=== PATIENT | female | born 1955 | race Caucasian/White ===

== ENCOUNTER 2016-08-13 15:32 | Emergency (ER) | payer MEDICARE ==
[~2016-08-13] VITALS: Ht 160 cm; Wt 37.2 kg
[~2016-08-13 15:32] MED LIST: AUGMENTIN 875-1 EACH PO; DICLOFENAC 50MG50 MG PO; FLEXERIL10 MG PO; MEDROL DOSEPAK4 MG PO; NOMEDS XX
--- NOTE | 2016-08-13 15:52 | Urgent Treatment Center Report ---
History of Present Issue Date/Time Seen by Provider 08/13/16 0280 Visit Reason Pt arrived:Wheelchair Presenting Problem:PT C/O LEFT FOOT AND ANKLE PAIN AFTER DANCING OVER THE WEEKEND IN HEELS Location if Accident: Onset of symptoms date/time:/ or onset unknown for:MEDICAL HX UNKNOWN Have you (or family members/close friends) recently traveled outside the [place]? N If Yes, where/when: Have you had exposure to infectious disease within the past month? TB? Other? Specify: Patient states that she was dancing over the weekend in high heeled boots when she went to stomp her foot to a song and felt a sharp pain in the bottom of her foot that radiates up the back of her ankle around the archilles tendon area now it hurts to bear weight on it ALLERGIES Coded Allergies: clopidogrel (From PLAVIX) (S-SKIN ERUPTIONS 10/28/15) Home Medications Active Scripts Amoxicillin/Potassium Clav (Augmentin 875-125 Tablet) 1 EACH PO BID 10 Days Prov: 02/13/16 Methylprednisolone (Medrol) 4 MG PO DAILY #1 Packet Prov: 02/13/16 DICLOFENAC SODIUM (Diclofenac 50MG) 50 MG PO BID #60 TAB Prov: 10/28/15 Cyclobenzaprine Hcl (Flexeril) 5 MG PO BID #30 TAB Prov: 10/28/15 Reported Medications No Home Medications (NO HOME MEDICATIONS) 1 EACH XX ONCE History Medical History General CAD? Yes Angina: Yes PR: Yes Hypertension? No Hyperlipidemia? No CHF? Yes DVT? No PE? No COPD? Yes Asthma? Yes Anemia? Yes GERD? No Gastric ulcers? No GI Bleed? No Hernia? No Thyroid Problems? No Hypothyroidism? No CVA? No Seizures? No Diabetes? No Renal Insuffiency? No UTI? No Stones? No GB Disease: No Nephritic Syndrome? No Asplenia? No Hepatitis? No Sickle Cell Disease? No Arthritis? No Migraines? Yes Cataracts? No Glaucoma? No MRSA? No HIV? No TB? No Anxiety? Yes Depression? Yes Cancer? Yes Site: BREAST More? No Immunization HX DT/Tetanus Unknown Surgical Hx Previous Surgery?Y AGUEDA RIGHT LUMPECTOMY SHEILA BUNIONECTOMY Hemorrhoidectomy Social History Smoking Hx Smoker: Current Every Day Smoker Tobacco: Yes Type Cigarettes Packs/day 1 1/2 - 2 Packs Alcohol Alcohol: Yes Review of Systems All Other Systems Reviewed and Negative Physical Exam Vital Signs Vital Signs Date Time Temp Pulse Resp B/P Pulse O2 O2 Flow FiO2 Ox Delivery Rate 08/13 1541 98.6 114 18 138/84 94 General Appearance normal appearance Respiratory Status Yes: trachea midline, chest symmetrical, non tender chest. No: respiratory distress. Cardiovascular normal exam, no peripheral edema, no gallop Extremities pain in left foot and ankle, small contusion noted on bottom of left foot Neurologic alert, normal exam, no motor/sensory deficits Medical Decision Making LABS/Meds/Orders Pt receiving controlled substance in ED? No Results/Orders Orders Procedure Date/time Status FOOT-LT-3 VIEWS 08/13 154 Active ANKLE-LT-3 VIEWS 08/13 1546 Active XRAY/CT/US XRAY/CT/US XR interpretation by reviewed by me Xray Results no fracture seen Progress [facility] Progress Notes Date 08/13/16 Time 1609 Comment Patient placed in boot splint and given crutches Departure Departure Time of Disposition 1608 Disposition DC Home or Self Care(routine) Clinical Impression Primary Impression: Sprain of foot, left Qualifiers: Encounter type: initial encounter Qualified Code: S93.602A - Unspecified sprain of left foot, initial encounter Condition STABLE Patient Instructions DI for Foot Sprain, How To Perform RICE (Rest, Ice, Compress, Elevate), How to Use a Walking Boot, How to Use Crutches Additional Instructions Follow up with family doctor for referal to Orthopedics for further evaluation Over the counter Motrin as neeeded for pain RICE Return if needed Use boot splint and crutches until cleared by family doctor or ORTHO Discharge Counseling Counseled pt/family regarding diagnosis, test results, medications/RX, home care at 1615
[2016-08-13 16:22] VITALS: BP 138/84
--- NOTE | 2016-08-13 17:58 | RADIOLOGY REPORT PS360 ---
ANKLE-LT-3 VIEWS ORDERING PHYSICIAN : GLENN SHEFFIELD APRN PATIENT AGE: 60 years GENDER: Female INDICATION: INJURED WHILE DANCING THIS WEEKENED TECHNIQUE: 3 views left ankle. Injured while dancing akira. COMPARISON: No previous FINDINGS Left ankle is intact with no fracture evident Normal relationships at the ankle joint. Dome of talus intact. The lateral malleolus medial malleolus posterior malleolus appear intact. No significant soft tissue swelling. IMPRESSION: Negative left ankle. No fracture.
--- NOTE | 2016-08-13 17:58 | RADIOLOGY REPORT PS360 ---
FOOT-LT-3 VIEWS ORDERING PHYSICIAN : GLENN SHEFFIELD APRN PATIENT AGE: 60 years GENDER: Female INDICATION: INJURED WHILE DANCING THIS WEEKENED Left foot and ankle pain from, from foot/ankle injury TECHNIQUE: 3 view left foot COMPARISON: None FINDINGS The left foot is intact with no fracture evident. There is been a previous osteotomy bunionectomy at the distal first metatarsal. 2 screws enter posteriorly reflecting the previous bunionectomy procedure. . 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 The remainder the foot appears intact and unremarkable. The metatarsals intact. Calcaneus unremarkable. IMPRESSION: No acute findings at the foot. No fracture. Postsurgical changes first metatarsal.
[2016-08-17] MEDS ORDERED: IPRATROPIUM BROM3 M1 IH (11:20)
[2016-08-17] MEDS ORDERED: VENTOLIN H0.09 MG/Ac IH (11:20)
[2016-08-17] MEDS ORDERED: ZOFRAN ODT4 MG PO (13:23)
[2016-08-27] MEDS ORDERED: PROVENTIL0.09 MG/A1 IH (16:01)
[2016-08-27] MEDS ORDERED: ZITHROMAX Z PA250 MG PO (16:01)
[2016-08-27] MEDS ORDERED: MEDROL 4MG. DOSE4 MG PO (16:01)
[2016-08-27] MEDS ORDERED: MUCINEX1200 MG PO (16:01)
== END 2016-08-13 16:22 | disposition home or self-care (01) ==
LOC: UTC 15:32
PROC: 2W3TX1Z Immobilization of Left Foot using Splint (ICD-10-PCS; principal; 2016-08-13)
DX: S93.602A Unspecified sprain of left foot, initial encounter (principal); X50.3XXA Overexertion from repetitive movements, initial encounter; Y93.41 Activity, dancing; Y92.89 Other specified places as the place of occurrence of the external cause

== ENCOUNTER 2016-10-10 07:21 | Day surgery (SDC) | payer MEDICARE ==
[~2016-10-10 07:21] MED LIST changes: +IPRATROPIUM BROM3 M1 IH; +MEDROL 4MG. DOSE4 MG PO; +MUCINEX1200 MG PO; +PROVENTIL0.09 MG/A1 IH; +VENTOLIN H0.09 MG/Ac IH; +ZITHROMAX Z PA250 MG PO; +ZOFRAN ODT4 MG PO
[2016-10-10 14:17] VITALS: BP 167/96
--- NOTE | 2016-10-11 13:20 | RADIOLOGY REPORT PS360 ---
CARDIAC CATHETERIZATION DATE OF CATHETERIZATION:10/11/2016 1:05 PM PROCEDURES: 1. Right heart catheterization 2. Left ventriculogram 3. Selective coronary angiogram 4. Left heart catheterization 5. Catheter placement in the abdominal aorta 6. Abdominal aortography 7. Repositioning of the catheter in the abdominal aorta 8. Bilateral iliofemoral runoff INDICATION FOR TEST: 1. Angina pectoris class III and IV 2. Severe COPD 3. Pulmonary hypertension 4. High pretest likelihood for coronary artery disease 5. Known peripheral artery disease 6. Right common iliac artery bruit 7. History of peripheral stents Informed consent was obtained prior to the procedure. COMPLICATIONS: None ESTIMATED BLOOD LOSS: Less than 10 ml. TECHNIQUE: One percent lidocaine was used to anesthetize the right groin. The right femoral artery was accessed via the Seldinger technique. A 4-Faroese sheath and 7 Faroese sheath were placed in the artery vein respectively. A Lawton-Ernie catheter was floated into the pulmonary arteries via the right femoral vein and hemodynamic study was performed. The apparatus was removed and left heart catheterization was then performed. Over a 3J wire a JL 4 JR4 catheter were used to perform left heart catheterization left ventriculogram and selective coronary angiography. At the end of the diagnostic angiogram the pigtail catheter was placed in the abdominal aorta and abdominal aortography was performed. The catheter was then repositioned distally just proximal to the common iliac artery bifurcation and bilateral iliofemoral runoff was performed.. ANGIOGRAPHIC RESULTS: 1. The left main artery normal 2. The left anterior descending artery normal 3. The circumflex artery dominant and normal 4. The right coronary artery nondominant and has mid vessel 20-30% eccentric stenoses and distal 30-40% nonflow limiting stenoses 5. The LINDO ventriculogram reveals normal 65% 6. The left ventricular end-diastolic pressure 10 mmHg 7. The suprarenal abdominal aorta is normal 8. The right renal artery is singular and has a proximal 40% stenosis while the left renal artery singular and normal. 9. The mesenteric arteries are normal 10. The right common iliac artery has proximal 10-20% stenosis with a stent in its distal segment that extends into the external iliac artery. This stent has 30% in-stent restenosis while the internal iliac arteries occluded. The right external iliac artery is patent as it extends into the right common femoral artery which has mild atheromatous plaque. The right profunda femoris artery is normal. The right superficial femoral artery has mild atheromatous plaque with 30-40% stenosis at Laureano's canal. The right popliteal artery is normal with three-vessel runoff below the knee to the ankle 11. The left common iliac artery has a long tubular 40% narrowing as it extends into the external iliac artery. The left internal iliac artery appears to be occluded ostially. The left common femoral artery is normal as is the left profunda femoris artery and the left superficial femoral artery. The left popliteal artery is normal with three-vessel runoff below the knee in the left side Right atrial saturation 78% Pulmonary artery saturation 79% Right atrial pressure is 3 mmHg Pulmonary artery pressure is 30/15 mmHg IMPRESSION: 1. Mild nonflow limiting coronary artery disease involving a nondominant mid and distal right coronary artery 2. Normal ejection fraction 3. Normal left ventricular end-diastolic pressure 4. Peripheral artery disease as described above 5. Mild pulmonary hypertension with normal left-sided filling pressures PLAN: 1. Medical management for both peripherally coronary artery disease 2. Tobacco cessation 3. High intensity statin therapy
== END 2016-10-10 14:24 | disposition home or self-care (01) ==
LOC: CATHLAB 07:21
PROVIDERS: Internal Medicine
PROC: B2111ZZ Fluoroscopy of Multiple Coronary Arteries using Low Osmolar Contrast (ICD-10-PCS; 2016-10-10)
PROC: B2151ZZ Fluoroscopy of Left Heart using Low Osmolar Contrast (ICD-10-PCS; 2016-10-10)
PROC: B41D1ZZ Fluoroscopy of Aorta and Bilateral Lower Extremity Arteries using Low Osmolar Contrast (ICD-10-PCS; 2016-10-10)
PROC: 4A023N8 Measurement of Cardiac Sampling and Pressure, Bilateral, Percutaneous Approach (ICD-10-PCS; principal; 2016-10-10 09:45)
DX: I25.119 Atherosclerotic heart disease of native coronary artery with unspecified angina pectoris (principal); Z72.0 Tobacco use; I70.1 Atherosclerosis of renal artery; I70.209 Unspecified atherosclerosis of native arteries of extremities, unspecified extremity; I27.2 Other secondary pulmonary hypertension; J44.9 Chronic obstructive pulmonary disease, unspecified; I50.9 Heart failure, unspecified
CPT/HCPCS: C1725; C1769; C1894; J1644; Q9966

== ENCOUNTER 2017-03-02 20:22 | Inpatient (IN) | payer MEDICARE ==
[~2017-03-02] VITALS: Ht 160 cm; Wt 43.7 kg
[2017-03-02 20:23] VITALS: BP 153/89
--- NOTE | 2017-03-02 20:46 | Emergency Room Report ---
History of Present Illness Time Seen by 2021 Presenting Problem in Triage Pt arrived:Wheelchair Presenting Problem:SHORTNESS OF BREATH, CHEST PAIN, MORE IN LEFT LUNG AREA. STARTED A FEW MINUTES AGO. Onset of symptoms date/time:03/02/1703/10/2000 or onset unknown for: Treatment Prior to Arrival: TERMINOLOGIST Provided by: Sepsis Risk Assessment: Temp: 99.1 B/P: 153/89 MAP: 110 Pulse: 111 Resp: 28 Recent fever? Y Clinical Suspician of Infection? Y Mental Status: 1 - Regular (Normal Baseline) Sepsis Risk:Severe Sepsis Risk Have you (or family members/close friends) recently traveled outside the [place]? N If Yes, where/when: Have you had exposure to infectious disease within the past month? N TB? Other? Specify: Source patient, RN notes reviewed, old records Exam Limitations no limitations Comment pt with known o2 dep copd who over the last few days has fever with medical claims assistant cough but no hemoptysis and has lt sided chest pain Cardiac Chest Pain Chest pain indicative of cardiac No Timing/Duration this evening Severity moderate ALLERGIES Coded Allergies: clopidogrel (From PLAVIX) (S-SKIN ERUPTIONS 08/17/16) Home Medications Reported Medications No Home Medications (NO HOME MEDICATIONS) 1 EACH XX ONCE History Medical History General CAD? Yes Angina: Yes SD: Yes Hypertension? Yes Hyperlipidemia? No CHF? Yes DVT? No PE? No COPD? Yes Asthma? Yes Anemia? Yes GERD? No Gastric ulcers? No GI Bleed? No Hernia? No Thyroid Problems? No Hypothyroidism? No CVA? No Seizures? No Diabetes? No Renal Insuffiency? No End Stage Renal Disease? No UTI? No Stones? No GB Disease: No Nephritic Syndrome? No Asplenia? No Hepatitis? No Sickle Cell Disease? No Arthritis? No Migraines? Yes Cataracts? No Glaucoma? No MRSA? No HIV? No TB? No Anxiety? Yes Depression? Yes Cancer? Yes Site: BREAST More? No Immunization Hx DT/Tetanus Unknown Flu 2015-FSN Pneumonia Received In Past Surgical Hx Previous Surgery?Y AGUEDA RIGHT LUMPECTOMY SHEILA BUNIONECTOMY Hemorrhoidectomy Family History Family Hx Diabetes Yes CAD Yes Hypertension Yes Hyperlipidemia Yes Cancer Yes TB No Social History Smoking Hx Smoker: Current Every Day Smoker Tobacco: Yes Type Cigarettes Packs/day 1 1/2 - 2 Packs Alcohol Alcohol: No Drugs none Review of Systems All Other Systems Reviewed and Negative Constitutional see HPI, fever Eyes denies drainage ENT denies: ear discharge, epistaxis, throat pain. Respiratory see HPI, cough, shortness of breath, wheezing Cardiovascular denies chest pain, denies palpitations, denies syncope Gastrointestinal denies abdominal pain, denies diarrhea, denies vomiting Genitourinary denies: dysuria, frequency, hesitancy, hematuria. Musculoskeletal denies back pain, denies joint pain, denies joint swelling, denies neck pain Skin denies rash Psychiatric/Neurological denies headache, denies seizure Physical Exam Vital Signs Vital Signs Date Time Temp Pulse Resp B/P Pulse O2 O2 Flow FiO2 Ox Delivery Rate 03/02 2123 102 20 135/71 100 03/02 2023 99.1 111 28 153/89 88 - WBC >12,000 or <4,000 or 10% bands? 2 or more SIRS Criteria Met? B/P:135/71 MAP:110 Creatinine >2.0? UA output<0.5ml/kg/hr for 2 hrs? Platelet count >100,000? Lactate >2.0mmol/1? INR >1.2 or PTT > than 60 sec? Evidence of Organ Dysfunction? Provider documented clinical suspician of infection? Y Sepsis Criteria Count: 2 Sepsis Risk: Severe Sepsis Risk General Appearance no apparent distress Eye Exam - bilateral eye PERRL, bilateral eye EOMI Ear, Nose, Throat normal ENT inspection Neck supple Respiratory Status No: respiratory distress. Lung Sounds bilateral: decreased breath sounds, rhonchi. Cardiovascular regular rate/rhythm, no JVD, no rub, systolic murmur, gallop/S4 Peripheral Pulses Pulses normal Yes Gastrointestinal soft Extremities normal inspection, no calf tenderness Strength 4 Upper Ext (L), 4 Upper Ext (R), 4 Lower Ext (L), 4 Lower Ext (R) Neurologic alert, impregnator helper II-XII nml as tested, no motor/sensory deficits Reflexes Reflexes normal No Mental status normal mood/affect Skin intact Medical Decision Making LABS/Meds/Orders Pt receiving controlled substance in ED? No Results/Orders Laboratory Tests 03/02/172120: ABG pH 7.43, ABG pCO2 (Temp Corrct 38.2, ABG pO2 (Temp Correct 67.3 L, ABG HCO3 24.6, ABG Total CO2 25.8, ABG O2 Sat (Calculated) 94.5, ABG Base Excess 0.3, Raman Test Y, Blood Gas Comments R/R 03/02/172034: Lactic Acid 2.3 H 03/02/172034: Sodium 134 L, Potassium 4.5, Chloride 96 L, Carbon Dioxide 32, BUN 11, Creatinine 0.7, Estimated Creat Clear 48 L, Estimated GFR (MDRD) 85, Glucose 83 , Calcium 9.4, Total Bilirubin 0.4, AST 25, ALT 25, Alkaline Phosphatase 114, Creatine Kinase 52, CK-MB (CK-2) Rel Index 1.0, CK and CKMB Interp < 0.5, Troponin I < 0.02, Total Protein 8.6 H, Albumin 3.4, Globulin 5.2 H, Albumin/ Globulin Ratio 0.7 L, WBC 11.5 H, RBC 4.89, Hgb 15.6, Hct 48.1 H, MCV 98.4 H , RDW 12.7, Plt Count 273, MPV 8.9, Gran % 78.7, Gran # 9.0 H, Lymphocytes % 16.6, Monocytes % 2.7, Eosinophils % 1.7, Basophils % 0.4, Lymphocytes # 1.9, Monocytes # 0.3, Eosinophils # 0.2, Basophils # 0.0, PUBS MCHC 32.5, MCH 32.0 H Current Medication Orders Sig/Hussain Start time Last Medication Dose Route Stop Time Status Admin Azithromycin 500 MG ONCE ONE 03/02 2215 AC Sodium Chloride 250 ML IV 03/02 231 Ceftriaxone Sodium 1 GM ONCE ONE 03/02 2215 AC Sodium Chloride 50 ML IV 03/02 2244 Methylprednisolone 125 MG ONCE ONE 03/02 2200 DC Sodium Succinate IV 03/02 2201 Albuterol/Ipratropium 3 ML ONCE ONE 03/02 2115 DC INH 03/02 2116 Albuterol/Ipratropium 0 .STK-MED ONE 03/02 2107 DC INH Sodium Chloride 10 ML PRN PRN 03/02 2030 AC IV 03/03 2028 Orders Procedure Date/time Status Decision to admit 03/02 2205 Active CULTURE, BLOOD 03/02 2112 Active LACTIC ACID 03/02 2112 Complete RT REQUEST DUONEB 03/02 2101 Active ARTERIAL BLOOD GAS REQUEST 03/02 2057 Active ELECTROCARDIOGRAM REQUEST 03/02 2028 Active CHEST-PORTABLE 03/02 2028 Active IV SALINE LOCK 03/02 2028 Active COMPLETE METABOLIC PANEL 03/02 2028 Complete CBC WITH AUTO DIFF 03/02 2028 Complete CARDIAC ENZYMES 03/02 2028 Complete 12 LEAD EKG-JG (INITIAL) 03/02 UNK Active CM/EKG 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 ST/Twave chgs XRAY/CT/US XRAY/CT/US XRAY chest XR interpretation by reviewed by me Xray Results abnormal (copd/chronic changes ) Departure Departure Time of Disposition 2200 Disposition Still a Patient Clinical Impression Primary Impression: COPD (chronic obstructive pulmonary disease) with acute bronchitis Condition STABLE Referrals FREYA MODI (Family) discussed with dr baker ED Critical Care Critical Care No at 2210
[2017-03-02 20:53] LABS: HEMOGLOBIN 15.6 g/dL (12.2-16.2); LYMPH # 1.9 K/mm3 (0.7-4.5); LYMPH % 16.6 % (10-50.0)
[2017-03-02 21:19] LABS: BUN 11 mg/dL (7-18); GFR (ESTIMATED) 85 ML/MIN (59-)
[2017-03-02 21:22] LABS: ALLEN'S TEST Y; ARTERIAL ABE 0.3 MMOL/L (-2.4-+2.3); ARTERIAL PO2 67.3 MMHG (80-100); ARTERIAL TCO2 25.8 MMOL/L (23-27); OXYGEN 2
[2017-03-02 23:40] VITALS: BP 110/72
[2017-03-03] VITALS (7 sets, daily range): BP systolic 105–110; BP diastolic 59–72
[2017-03-03] MEDS ORDERED: ALBUTEROL-200 PUFFS/ IH (03:36)
[2017-03-03] MEDS ORDERED: VENTOLIN H0.09 MG/AC IH (03:45)
[2017-03-03 04:24] LABS: HEMOGLOBIN 14.2 g/dL (12.2-16.2); LYMPH # 0.5 K/mm3 (0.7-4.5); LYMPH % 3.7 % (10-50.0)
[2017-03-03 04:51] LABS: BUN 11 mg/dL (7-18)
[2017-03-03 04:58] LABS: GFR (ESTIMATED) 73 ML/MIN (59-)
[2017-03-03 06:19] LABS: NEUTROPHILS 84 % (42-76)
--- NOTE | 2017-03-03 08:09 | RADIOLOGY REPORT PS360 ---
CHEST-PORTABLE HISTORY: Shortness of breath sob ORDERING PHYSICIAN: Alen Reveles MD PATIENT AGE: 61 years COMPARISON: 08/27/2016 FINDINGS: Multiple small opacities are present over the lower chest consistent with artifact from the patient's garment. Normal heart size. COPD with chronic changes. Postsurgical changes right upper lobe. There is vague opacity in the left apex which may be due to chronic pleural parenchymal changes. Chest CT may confirm. Infiltrate or developing mass also a consideration. There are chronic changes in the lung bases. There is patchy density in the left lower lobe consistent with atelectasis or infiltrate. Nodular opacity right lung base nonspecific and may be due to artifact. IMPRESSION: 1. COPD with chronic changes. 2. Left lower lobe infiltrate. 3. Vague opacity left upper lobe which may be due to fibrotic change, pneumonia, or even developing mass. 4. Nodular opacity right lung base which may be due to developing nodule or artifact. Consider chest CT for further evaluation.
--- NOTE | 2017-03-03 09:13 | PHARMACY CLINIC NOTE ---
Patient Demographics Patient Demographics Admission date: 03/02/17 Date: 03/03/17 Time: 09 Allergies Coded Allergies: clopidogrel (From PLAVIX) (S-SKIN ERUPTIONS 08/17/16) HEIGHT- FT: 5 IN: 3.00 K.556 VTE General Information Labs: Laboratory Tests 03/03 03/02 0410 2035 Hematology Hgb (12.2 - 16.2 g/dL) 14.2 15.6 Hct (37.0 - 47.0 %) 43.3 48.1 H Plt Count (142 - 424 K/mm3) 253 273 Disclaimer The following section includes nursing documentation that has been pulled in for pharmacy review. Patient's VTE score: 3 Patient's VTE Risk: LOW RISK Clinical trial participant? No VTE prophylaxis NQF [id number] VTE prophylaxis ordered? Yes Type of prophylaxis/treatment: ANGELA at 0913
--- NOTE | 2017-03-03 09:50 | HISTORY AND PHYSICAL REPORT ---
History and Physical (FCA) Date of admission: 03/02/17 Chief complaint: Shortness of breath History: History of Present Illness: This 61-year-old white female has chronic obstructive lung disease and emphysema. She has smoked since the age of 11. She presented in the emergency room at [facility] with complaints of increased shortness of breath and pain in the LEFT chest. She is a patient of Dr. Yvette Law in [facility]. She last saw Dr. Law in the spring. She's also been a patient of Dr. Agustin Shane, hotel or motel room service supervisor. Significant in her pulmonary history is a pneumothorax of the RIGHT side in 1989 with recurrence [address] Ojeda in [facility] for surgery on her lung to remove damaged tissue and to adhese the lung to the pleura. She states that she has used home oxygen for the past 4 years. She uses inhalers and nebulizers. She uses DuoNeb and uses a Ventolin metered dose inhaler she occasionally takes some Benadryl and states that she was taking Coricidin for recent cold symptoms that led to her presentation in the emergency room. Past Medical History: Medical History: CAD? Yes Angina: Yes CO: Yes (2009? Cath by [facility]) Hypertension? Yes Hyperlipidemia? No CHF? No DVT? No PE? No COPD? Yes Asthma? Yes Anemia? Yes GERD? No Gastric ulcers? No GI Bleed? No Hernia? No Thyroid Problems? No Hypothyroidism? No CVA? No Seizures? No Diabetes? No Renal Insuffiency? No UTI? No Stones? No GB Disease: No Nephritic Syndrome? No Asplenia? No Hepatitis? No Sickle Cell Disease? No Arthritis? No Migraines? Yes Cataracts? No Glaucoma? No MRSA? No HIV? No TB? No Anxiety? No Depression? No Cancer? Yes Site: BREAST More? Yes Additional hx: She has had cat scratch fever in the past. After her heart attack in catheterization in 2009 she underwent placement of stents in the RIGHT leg. She also mentions 2012 as possible time for this. She has been scheduled to see Dr. Worley but has not seen him at this point. Additional medical history: The patient also had a cardiac catheterization October 10, 2016 to check on the status of peripheral stents. Her ejection fraction was estimated at 65 percent on that procedure and on an echo for 2116 it was 55 percent. She underwent mammography on 2116 are October 17, 2016 primary function tests showed severe chronic obstructive pulmonary disease/emphysema. Surgical history: Previous Surgery?Y 1. Treatment of the cervix with subsequent AGUEDA 2. RIGHT LUMPECTOMY 3. Right and left BUNIONECTOMY 4. Hemorrhoidectomy 5. Carpal tunnel Medications: Reported Medications ALBUTEROL (Ventolin Hfa) 1 PUFF IH Q6H6 No Home Medications (NO HOME MEDICATIONS) 1 EACH XX ONCE Allergies: Coded Allergies: clopidogrel (From PLAVIX) (S-SKIN ERUPTIONS 08/17/16) Family History: Family history: Postive for: CAD, HTN, cancer. Additional family history: Her mother and father both of lung cancer. Her 4 years ago of lung cancer. A sister and 2 brothers have had lung cancer. Another sister had bone cancer. HER-2 brothers have both had heart disease. All of her children smoke. Social History: Smoking Hx Tobacco: Yes Smoker: Current Every Day Smoker Type: Cigarettes Packs/day: < 1 Pack Are you exposed to second hand Yes Alcohol: Alcohol: Yes How much do you drink 3 TO 13 BEERS PER DAY For how long Longer Than 5 Years When was your last drink 48-72 Hours Ago Hx of Drug Use: Drug Use? No Patien't marital status is: spouse Patient's support system is: good Review of Systems: Patient unresponsive? No Constitutional No: chills, fatigue. ENT No: ear ache, nose bleed, ear drainage, hearing loss, mouth pain, nasal congestion, ear ringing, sinus problems, sore throat, throat swelling, tongue pain, tongue swelling, toothache, voice change. Cardiovascular Positive for: PALACIOS, chest pain. No: edema, palpitations. Respiratory Positive for: dyspnea on exertion, shortness of air, wheezing. No: productive cough (sputum). GI No: GERD, abdominal pain, anorexia, constipation, diarrhea, dysphagia, hematemeis, hematochezia, hernia, melena, nausea, rectal pain, vomitting. Skin No: bruising, rash, swelling. Neurological No: change in LOC, bladder dysfunction, bowel dysfunction, dizziness, light headed, syncope. Immune/allergy Positive for: allergy (clopidogrel). Eyes No: vision loss, eye pain, redness. Musculoskeletal No: extremity pain, extremity swelling. Heme No: bleeding. Endocrine No: polydipsia. Psychiatric No: agitation, anxious, auditory hallucinations, confused, delusional, depression, homicidal ideation, hostile, insomnia, change in mental status, stress, suicidal ideation, visual hallucination. Physical Exam: Vital signs: 1ST Vital Signs Result Date Time Pulse Ox 88 03/02 2023 B/P 153/89 03/02 2023 Temp 99.1 03/02 2023 Pulse 111 03/02 2023 Resp 28 03/02 2023 O2 Delivery OXYGEN 03/02 2340 O2 Flow Rate 2 03/03 0009 Exam: General appearance: alert, no acute distress (somewhat tachypneic) Eyes: conjunctiva clear, PERRLA ENT: mucous membranes moist, teeth/gums abnormal (missing teeth.upper plate) Neck: no carotid bruit Cardiovascular: regular rate & rhythm (S4) Respiratory: diminished breath sounds, wheezing (LEFT more than RIGHT) ABD: soft, no tenderness, no guarding (scaphoid) Genitourinary: normal voiding & quantity Extremities: no peripheral edema (very thin) Skin: normal exam, intact, normal color Neuro: alert, no deficit, oriented, speech clear Lab data: Labs: Laboratory Tests 03/03/17 0410: Sodium 134 L, Potassium 4.2, Chloride 99, Carbon Dioxide 29, BUN 11, Creatinine 0.8, Estimated Creat Clear 45 L, Estimated GFR (MDRD) 73, Glucose 178 H, Calcium 8.8, Creatine Kinase 38, CK-MB (CK-2) Rel Index 1.3, CK and CKMB Interp < 0.5, Troponin I < 0.02, WBC 12.5 H, RBC 4.42, Hgb 14.2, Hct 43.3, MCV 98.1 H , RDW 12.7, Plt Count 253, MPV 9.1, Gran % 94.8 H, Gran # 11.9 H, Total Counted 100, Lymphocytes % 3.7 L, Monocytes % 1.3 L, Eosinophils % 0.1, Basophils % 0.1, Neutrophils 84 H, Band Neutrophils 12 H, Lymphocytes (Manual) 4 L, Lymphocytes # 0.5 L, Monocytes # 0.2, Eosinophils # 0.0, Basophils # 0.0, Platelet Estimate NORMAL, Polychromasia SL., Anisocytosis 1+, Rouleaux SL., PUBS MCHC 32.8, MCH 32.2 H 03/03/17104: Lactic Acid 0.9 03/03/17104: Creatine Kinase 42, CK-MB (CK-2) Rel Index 1.2, CK and CKMB Interp < 0.5, Troponin I < 0.02 03/02/172120: ABG pH 7.43, ABG pCO2 (Temp Corrct 38.2, ABG pO2 (Temp Correct 67.3 L, ABG HCO3 24.6, ABG Total CO2 25.8, ABG O2 Sat (Calculated) 94.5, ABG Base Excess 0.3, Raman Test Y, Blood Gas Comments R/R 03/02/172034: Lactic Acid 2.3 H 03/02/172034: Sodium 134 L, Potassium 4.5, Chloride 96 L, Carbon Dioxide 32, BUN 11, Creatinine 0.7, Estimated Creat Clear 48 L, Estimated GFR (MDRD) 85, Glucose 83 , Calcium 9.4, Total Bilirubin 0.4, AST 25, ALT 25, Alkaline Phosphatase 114, Creatine Kinase 52, CK-MB (CK-2) Rel Index 1.0, CK and CKMB Interp < 0.5, Troponin I < 0.02, Total Protein 8.6 H, Albumin 3.4, Globulin 5.2 H, Albumin/ Globulin Ratio 0.7 L, WBC 11.5 H, RBC 4.89, Hgb 15.6, Hct 48.1 H, MCV 98.4 H , RDW 12.7, Plt Count 273, MPV 8.9, Gran % 78.7, Gran # 9.0 H, Lymphocytes % 16.6, Monocytes % 2.7, Eosinophils % 1.7, Basophils % 0.4, Lymphocytes # 1.9, Monocytes # 0.3, Eosinophils # 0.2, Basophils # 0.0, PUBS MCHC 32.5, MCH 32.0 H Microbiology 03/02 2035 BLOOD: Anaerobic Blood Culture - RECD 03/02 2035 BLOOD: Aerobic Blood Culture - RECD 03/02 2035 BLOOD: Anaerobic Blood Culture - RECD 03/02 2035 BLOOD: Aerobic Blood Culture - RECD Radiology results: Results: Chronic obstructive pulmonary disease and emphysema, no evidence of pneumothorax. LEFT lower lobe with infiltrate LEFT upper lobe with abnormal appearance. Nodularity in the RIGHT lower lobe. Diagnosis(es): 1. Chest pain 2. COPD with exacerbation 3. Left lower lobe pneumonia 4. Abnormal finding on chest xray 5. Emphysema of lung Plan: See orders. She is receiving IV antibiotics and steroids. She is receiving respiratory therapy with nebulizers. at 0912
[2017-03-04] MEDS ORDERED: REQUIP 1 MG TABL1 MG FT (01:06)
--- NOTE | 2017-03-04 08:01 | ACUTE CARE PROGRESS NOTE (QUA) ---
See Addendum Progress Notes Subjective Date 03/04/17 Time 0754 Note Restless legs during the night;l also had a headache; thinks she had a stomachache from overeating; +SOB with MOTION PICTURE PROJECTIONIST cough; always has CP in both lungs; requests something for sleep; states tylenol will do. Has ambulated in the room without problems. Objective Findings Vital Signs Date Time Temp Pulse Resp B/P Pulse O2 O2 Flow FiO2 Ox Delivery Rate 03/04 0652 2 03/04 0543 94 OXYGEN 2 03/04 0455 2.5 03/04 0331 95 ROOM AIR 03/04 0331 951 ROOM AIR 03/04 0246 2.5 03/04 0200 2.5 03/04 0100 2.5 03/03 2300 2.5 03/03 2115 2.5 03/03 2115 97.7 98 20 109/59 03/03 2115 97.7 98 20 109/59 95 2.5 03/03 1957 2.5 03/03 1900 97.7 98 20 109/59 95 OXYGEN 2.5 03/03 1725 2.5 03/03 1606 98.2 68 20 108/65 96 OXYGEN 03/03 1549 2.5 03/03 1300 2.5 03/03 1120 2.5 03/03 0950 2.5 03/03 0840 98.5 95 20 107/62 92 2.5 Current Medications Ropinirole HCl 0.25 MG QHS PO (UNV) Acetaminophen 500 MG Q6HP PRN PO (UNV) Azithromycin 500 MG 2300 IV Sodium Chloride 250 ML Ceftriaxone Sodium 1 GM 2200 IV Sodium Chloride 50 ML Acetaminophen 0 .STK-MED ONE PO (DC) Polyethylene Glycol 17 GM DAILY PO Methylprednisolone Sodium Succinate 60 MG Q8 IV Albuterol/Ipratropium 3 ML Q6H6 INH Acetaminophen 650 MG Q4HP PRN PO Nicotine 21 MG DAILYP PRN TD Ondansetron HCl 4 MG Q6HP PRN IV Sodium Chloride 1,000 ML .[id number] IV Sodium Chloride 10 ML PRN PRN IV (DC) 03/03 1500 03/03 2300 03/04 0700 Intake Total 1507 480 Output Total Balance 1507 480 Intake, IV 507 Intake, Oral 1000 480 Last VS-Temp:97.7 B/P:109/59 Pulse:98 Resp:20 SaO2:94 OXYGEN Last weight lbs:85 oz:0 K.556 Method:Floor Scales Exam General appearance: alert, no acute distress, thin, sitting crosslegged in the bed getting ready to eat breakfast; appears comfortable Cardiovascular: regular rate & rhythm Respiratory: bilateral wheezing; decreased BS left base ABD: non-distended, soft, no tenderness, bowel sounds present Extremities: full range of motion, no peripheral edema Neuro: alert, oriented, speech clear Assessment/Plan Problem List 1. Chest pain 2. COPD with exacerbation 3. Left lower lobe pneumonia 4. Abnormal finding on chest xray 5. Emphysema of lung 6. Tobacco use disorder Patient condition Improving Plan: continue current care, Requip started; Tylenol prn; Chest CT; repeat CBC; This inpt stay is expected to cross 2 MNs from start of care Yes at 0801 at 0912
[2017-03-04 08:10] LABS: LYMPH # 0.7 K/mm3 (0.7-4.5); LYMPH % 5.3 % (10-50.0)
[2017-03-04 08:16] LABS: HEMOGLOBIN 12.6 g/dL (12.2-16.2)
[2017-03-04 08:30] VITALS: BP 116/67
[2017-03-04 08:34] LABS: NEUTROPHILS 90 % (42-76)
[2017-03-04 09:51] VITALS: BP 116/67
--- NOTE | 2017-03-04 13:11 | RADIOLOGY REPORT PS360 ---
CT CHEST W/ CONTRAST INDICATION: PNEUMONIA,POSS.LUNG MASS, follow-up lung mass ORDERING PHYSICIAN: Alen Reveles MD PATIENT AGE: 61 years COMPARISON: 10/28/2015 TECHNIQUE: Axial images are obtained with 75 mL Isovue-370 contrast. Sagittal and coronal reformatted images are reviewed as well. FINDINGS: Small lymph node is present in the aortopulmonic window measuring 10 x 8 mm previously measuring 8 x 6 mm. Precarinal lymph nodes are also present measuring up to 13 x 12 mm. 14 x 12 mm node is present anterior to the left mainstem bronchus. These are slightly larger than when compared to the previous exam. There are postsurgical changes present in the right upper lobe with moderate to severe centrilobular emphysematous changes. Patchy alveolar opacification is present in the left lower lobe consistent with pneumonia. There is increasing opacification in the left lung base laterally compared to the previous exam this is peripheral in nature and has progressed somewhat compared to the previous exam being wedge-shaped consistent with progressive consolidation. No effusions. Upper abdominal images are unremarkable. No acute bony anomalies IMPRESSION: 1. COPD with emphysematous changes. Postsurgical changes right upper lobe. 2. Left lower lobe pneumonia. 3. Slight increased consolidation in the left lung base laterally..
[2017-03-04 16:30] VITALS: BP 111/64
[2017-03-04 19:51] VITALS: BP 128/75
[2017-03-04 20:38] VITALS: BP 128/75
[2017-03-05 03:51] VITALS: BP 124/68
[2017-03-05 08:12] VITALS: BP 113/72
[2017-03-05 09:12] VITALS: BP 113/72
--- NOTE | 2017-03-05 09:24 | ACUTE CARE PROGRESS NOTE (QUA) ---
Progress Notes Subjective Date 03/05/17 Time 0920 Note Main problem is abdominal fullness; wants supp. Is very hungry but feels full; bowels have not moved in 2 days; no nausea or vomiting; some SOB; cough which is now sometimes productive; denies CP; voiding QS Objective Findings Vital Signs Date Time Temp Pulse Resp B/P Pulse O2 O2 Flow FiO2 Ox Delivery Rate 03/05 912 98.0 100 20 113/72 94 2 03/05 0812 98.0 100 20 113/72 94 OXYGEN 03/05 0628 2 03/05 0550 2 03/05 0550 93 OXYGEN 2 03/05 0514 2 03/05 0351 2 03/05 0351 97.6 87 16 124/68 97 OXYGEN 2 03/05 0332 2 03/05 0145 2 03/05 0101 2 03/05 0010 85 ROOM AIR 03/05 0000 2 03/04 2315 2 03/04 2226 90 ROOM AIR 03/04 2222 2 03/04 2110 2 03/04 2038 98.5 101 24 128/75 93 03/04 1951 98.5 101 24 128/75 93 OXYGEN 2 03/04 1700 2 03/04 1638 2 03/04 1638 2 03/04 1638 96 OXYGEN 2 03/04 1638 95 OXYGEN 2 03/04 1630 98.1 96 22 111/64 90 OXYGEN 03/04 1446 2 03/04 1300 2 03/04 1042 2 03/04 1035 95 OXYGEN 2 03/04 0951 97.9 95 20 116/67 95 2 Current Medications Bisacodyl 10 MG ONCE ONE NE (UNV) Bisacodyl 10 MG .[STAT] NE (UNV) Acetaminophen 0 .STK-MED ONE PO (DC) Ropinirole HCl 0.25 MG QHS PO Iopamidol 75 ML ONCE ONE IV (DC) Sodium Chloride 10 ML ONCE ONE IV (DC) Acetaminophen 500 MG Q6HP PRN PO Sodium Chloride 10 ML PRN PRN IV Azithromycin 500 MG 2300 IV Sodium Chloride 250 ML Ceftriaxone Sodium 1 GM 2200 IV Sodium Chloride 50 ML Polyethylene Glycol 17 GM DAILY PO Methylprednisolone Sodium Succinate 60 MG Q8 IV Albuterol/Ipratropium 3 ML Q6H6 INH Nicotine 21 MG DAILYP PRN TD Ondansetron HCl 4 MG Q6HP PRN IV Sodium Chloride 1,000 ML .[id number] IV 03/04 1500 03/04 2300 03/05 0700 Intake Total 600 240 928 Output Total Balance 600 240 928 Intake, IV 928 Intake, Oral 600 240 Patient 85 lb 0.02 oz Weight Last VS-Temp:98.0 B/P:113/72 Pulse:100 Resp:20 SaO2:94 OXYGEN Last weight lbs:85 oz:0 K.556 Method:Floor Scales Exam General appearance: alert, no acute distress, thin, sitting crossed leg in the bed Cardiovascular: regular rate & rhythm Respiratory: clear to auscultation (bilat anterior and posterior) ABD: soft, no tenderness, bowel sounds present, distended Extremities: no peripheral edema, no calf tenderness Neuro: alert, oriented, speech clear Assessment/Plan Problem List 1. Chest pain 2. COPD with exacerbation 3. Left lower lobe pneumonia 4. Abnormal finding on chest xray 5. Emphysema of lung 6. Tobacco use disorder 7. Constipation Patient condition Stable Plan: continue current care, supp this AM This inpt stay is expected to cross 2 MNs from start of care Yes at 0924
--- NOTE | 2017-03-05 09:26 | ACUTE CARE PROGRESS NOTE (QUA) ---
Progress Notes Subjective Date 03/05/17 Time 0905 Note Her main complaint this morning is her bowels. She's been constipated. Her breathing is better. Objective Findings Last VS-Temp:98.0 B/P:113/72 Pulse:100 Resp:20 SaO2:94 OXYGEN Last weight lbs:85 oz:0 K.556 Method:Floor Scales Exam General appearance: no acute distress Cardiovascular: regular rate & rhythm Respiratory: aerating well, diminished breath sounds, wheezing (none) ABD: soft, no tenderness Extremities: no peripheral edema Skin: dry, intact Neuro: no deficit Reviewed: vital signs, lab results, radiology report Assessment/Plan Problem List 1. Chest pain 2. COPD with exacerbation 3. Left lower lobe pneumonia 4. Abnormal finding on chest xray 5. Emphysema of lung 6. Tobacco use disorder Patient condition Improving Plan: continue current care, Dulcolax suppository This inpt stay is expected to cross 2 MNs from start of care Yes at [id number]
[2017-03-05 15:59] VITALS: BP 149/74
[2017-03-05 19:42] VITALS: BP 136/83
[2017-03-05 19:48] VITALS: BP 136/83
[2017-03-06 03:51] VITALS: BP 117/71
--- NOTE | 2017-03-06 07:54 | ACUTE CARE PROGRESS NOTE (QUA) ---
See Addendum Progress Notes Subjective Date 03/06/17 Time 0748 Note Upset this AM ; bowels have only moved a little; nothing seems to be right; wants IV disconnected so that she can go outside to smoke; jittery; wearing O2; states breathing is OK; states she is going home. Objective Findings Vital Signs Date Time Temp Pulse Resp B/P Pulse O2 O2 Flow FiO2 Ox Delivery Rate 03/06 0647 2 03/06 0608 2 03/06 0608 96 OXYGEN 2 03/06 0552 2.5 03/06 0501 2.5 03/06 0351 2.5 03/06 0351 97.9 85 18 117/71 96 OXYGEN 2.5 03/06 0328 2.5 03/06 0214 2.5 03/06 0204 2.5 03/06 0020 2.5 03/05 2200 2.5 03/05 2110 2.5 03/05 1948 2.5 03/05 1948 98.5 110 20 136/83 95 2.5 03/05 1942 2.5 03/05 1942 98.5 110 20 136/83 95 OXYGEN 2.5 03/05 1841 2.5 03/05 1841 84 ROOM AIR 03/05 1825 2 03/05 1629 2 03/05 1559 98.7 108 20 149/74 95 OXYGEN 03/05 1500 2 03/05 1300 2 03/05 1057 2.5 03/05 1033 2 03/05 0912 98.0 100 20 113/72 94 2 03/05 0900 2 03/05 0812 98.0 100 20 113/72 94 OXYGEN Current Medications Bisacodyl 10 MG .[STAT] WV (UNV) Magnesium Hydroxide 30 ML .[STAT] PO (UNV) Acetaminophen 0 .STK-MED ONE PO (DC) Acetaminophen 0 .STK-MED ONE PO (DC) Bisacodyl 10 MG ONCE ONE WV (DC) Bisacodyl 10 MG .[STAT] WV (CAN) Ropinirole HCl 0.25 MG QHS PO Acetaminophen 500 MG Q6HP PRN PO Sodium Chloride 10 ML PRN PRN IV Azithromycin 500 MG 2300 IV Sodium Chloride 250 ML Ceftriaxone Sodium 1 GM 2200 IV Sodium Chloride 50 ML Polyethylene Glycol 17 GM DAILY PO Methylprednisolone Sodium Succinate 60 MG Q8 IV Albuterol/Ipratropium 3 ML Q6H6 INH Nicotine 21 MG DAILYP PRN TD Ondansetron HCl 4 MG Q6HP PRN IV Sodium Chloride 1,000 ML .[id number] IV 03/05 1500 03/05 2300 03/06 0700 Intake Total 960 480 698 Output Total Balance 960 480 698 Intake, IV 698 Intake, Oral 960 480 Output, Stool Last VS-Temp:97.9 B/P:117/71 Pulse:85 Resp:18 SaO2:96 OXYGEN Last weight lbs:85 oz:0 K.556 Method:Floor Scales Exam General appearance: alert, active, agitated Cardiovascular: regular rate & rhythm Respiratory: diminished posteriorly Extremities: no peripheral edema Neuro: alert, oriented, jittery Assessment/Plan Problem List 1. Chest pain 2. COPD with exacerbation 3. Left lower lobe pneumonia 4. Abnormal finding on chest xray 5. Emphysema of lung 6. Tobacco use disorder 7. Constipation 8. Anxiety 9. Agitation Patient condition breathing is stable Plan: continue current care, repeat laxatives; if pt stays will need something for agitation and anxiety, After talking with Dr. Reveles pt agrees to stay; was outside walking in the rain smoking; will start on oxazepam This inpt stay is expected to cross 2 MNs from start of care Yes at 0916 at 0917
--- NOTE | 2017-03-06 07:54 | ACUTE CARE PROGRESS NOTE (QUA) ---
See Addendum Progress Notes Subjective Date 03/06/17 Time 0748 Note Upset this AM ; bowels have only moved a little; nothing seems to be right; wants IV disconnected so that she can go outside to smoke; jittery; wearing O2; states breathing is OK; states she is going home. Objective Findings Vital Signs Date Time Temp Pulse Resp B/P Pulse O2 O2 Flow FiO2 Ox Delivery Rate 03/06 0647 2 03/06 0608 2 03/06 0608 96 OXYGEN 2 03/06 0552 2.5 03/06 0501 2.5 03/06 0351 2.5 03/06 0351 97.9 85 18 117/71 96 OXYGEN 2.5 03/06 0328 2.5 03/06 0214 2.5 03/06 0204 2.5 03/06 0020 2.5 03/05 2200 2.5 03/05 2110 2.5 03/05 1948 2.5 03/05 1948 98.5 110 20 136/83 95 2.5 03/05 1942 2.5 03/05 1942 98.5 110 20 136/83 95 OXYGEN 2.5 03/05 1841 2.5 03/05 1841 84 ROOM AIR 03/05 1825 2 03/05 1629 2 03/05 1559 98.7 108 20 149/74 95 OXYGEN 03/05 1500 2 03/05 1300 2 03/05 1057 2.5 03/05 1033 2 03/05 0912 98.0 100 20 113/72 94 2 03/05 0900 2 03/05 0812 98.0 100 20 113/72 94 OXYGEN Current Medications Bisacodyl 10 MG .[STAT] MD (UNV) Magnesium Hydroxide 30 ML .[STAT] PO (UNV) Acetaminophen 0 .STK-MED ONE PO (DC) Acetaminophen 0 .STK-MED ONE PO (DC) Bisacodyl 10 MG ONCE ONE MD (DC) Bisacodyl 10 MG .[STAT] MD (CAN) Ropinirole HCl 0.25 MG QHS PO Acetaminophen 500 MG Q6HP PRN PO Sodium Chloride 10 ML PRN PRN IV Azithromycin 500 MG 2300 IV Sodium Chloride 250 ML Ceftriaxone Sodium 1 GM 2200 IV Sodium Chloride 50 ML Polyethylene Glycol 17 GM DAILY PO Methylprednisolone Sodium Succinate 60 MG Q8 IV Albuterol/Ipratropium 3 ML Q6H6 INH Nicotine 21 MG DAILYP PRN TD Ondansetron HCl 4 MG Q6HP PRN IV Sodium Chloride 1,000 ML .[id number] IV 03/05 1500 03/05 2300 03/06 0700 Intake Total 960 480 698 Output Total Balance 960 480 698 Intake, IV 698 Intake, Oral 960 480 Output, Stool Last VS-Temp:97.9 B/P:117/71 Pulse:85 Resp:18 SaO2:96 OXYGEN Last weight lbs:85 oz:0 K.556 Method:Floor Scales Exam General appearance: alert, active, agitated Cardiovascular: regular rate & rhythm Respiratory: diminished posteriorly Extremities: no peripheral edema Neuro: alert, oriented, jittery Assessment/Plan Problem List 1. Chest pain 2. COPD with exacerbation 3. Left lower lobe pneumonia 4. Abnormal finding on chest xray 5. Emphysema of lung 6. Tobacco use disorder 7. Constipation 8. Anxiety 9. Agitation Patient condition breathing is stable Plan: continue current care, repeat laxatives; if pt stays will need something for agitation and anxiety, After talking with Dr. Reveles pt agrees to stay; was outside walking in the rain smoking; will start on oxazepam This inpt stay is expected to cross 2 MNs from start of care Yes at 0916 at 0917
[2017-03-06 08:00] VITALS: BP 155/74
--- NOTE | 2017-03-06 08:29 | ACUTE CARE PROGRESS NOTE (QUA) ---
Progress Notes Subjective Date 03/06/17 Time 0827 Assessment/Plan Problem List 1. Chest pain 2. COPD with exacerbation 3. Left lower lobe pneumonia 4. Abnormal finding on chest xray 5. Emphysema of lung 6. Tobacco use disorder 7. Constipation 8. Anxiety 9. Agitation This inpt stay is expected to cross 2 MNs from start of care No Antibiotic Stewardship (2) Current Culture Results Microbiology 03/02 2035 BLOOD: Anaerobic Blood Culture - RES 03/02 2035 BLOOD: Aerobic Blood Culture - RES Infxn that will respond? Yes Right drug,dose,and route? Yes More targeted antbx? No at 0828
[2017-03-06 08:31] VITALS: BP 117/71
[2017-03-06] MEDS ORDERED: IPRATROPIUM BROM3 M1 IH (11:26)
[2017-03-06] MEDS ORDERED: REQUIP 1 MG TABL1 MG PO (11:26)
[2017-03-06 15:50] VITALS: BP 146/86
[2017-03-06 19:25] VITALS: BP 124/71
[2017-03-06 19:40] VITALS: BP 124/71
[2017-03-07 03:40] VITALS: BP 147/87
[2017-03-07 08:12] VITALS: BP 159/88
[2017-03-07] MEDS ORDERED: MIRALAX17 GM/DOSE PO (09:53)
[2017-03-07] MEDS ORDERED: OXAZEPAM 10MG C10 MG PO (09:55)
[2017-03-07] MEDS ORDERED: CEFDINIR300 M1 PO (09:56)
[2017-03-07] MEDS ORDERED: PREDNISONE5 MG PO (09:58)
--- NOTE | 2017-03-07 10:03 | ACUTE CARE PROGRESS NOTE (QUA) ---
Progress Notes Subjective Date 03/07/17 Time 0959 Note The patient is recurrently going outside to smoke and is out of her room in the weather. She can be discharged. I would like to arrange follow-up with her doctor Dr. Yvette Law. In contact has been made with that office to make them aware of patient's status. The patient will be discharged on her medications as prior to hospitalization but also will be continued on cefdinir 300 mg twice a day, prednisone 5 mg by mouth twice a day to allow tapering, adjustment and eventual discontinuation. Obviously she will need further pulmonary workup due to the abnormalities on her chest x-ray. Objective Findings Last VS-Temp:97.8 B/P:159/88 Pulse:97 Resp:20 SaO2:96 OXYGEN Last weight lbs:96 oz:6 K.715 Method:Floor Scales Exam General appearance: alert, active ENT: mucous membranes moist Cardiovascular: regular rate & rhythm Respiratory: basilar rales, diminished breath sounds ABD: soft, no tenderness Extremities: no peripheral edema Skin: dry, intact Neuro: oriented Assessment/Plan Problem List 1. Chest pain 2. COPD with exacerbation 3. Left lower lobe pneumonia 4. Abnormal finding on chest xray 5. Emphysema of lung 6. Tobacco use disorder 7. Constipation 8. Anxiety 9. Agitation Patient condition Stable Plan: initiate discharge plan This inpt stay is expected to cross 2 MNs from start of care Yes Antibiotic Stewardship (2) Infxn that will respond? Yes Right drug,dose,and route? Yes More targeted antbx? No at 1003
[2017-03-07 10:13] LABS: HEMOGLOBIN 13.3 g/dL (12.2-16.2); LYMPH # 0.9 K/mm3 (0.7-4.5); LYMPH % 9.1 % (10-50.0)
[2017-03-07 10:30] VITALS: BP 159/88
[2017-03-07 14:07] LABS: NEUTROPHILS 91 % (42-76)
--- NOTE | 2017-03-07 16:20 | DISCHARGE SUMMARY STANDARD ---
Discharge Summary (FCA2) Date of admission: 03/03/17 Date of discharge: 03/07/17 Problem List: 1. Chest pain 2. COPD with exacerbation 3. Left lower lobe pneumonia 4. Abnormal finding on chest xray 5. Emphysema of lung 6. Tobacco use disorder 7. Constipation 8. Anxiety 9. Agitation 10. General patient noncompliance History of present illness: History of Present Illness: Ms Shultz is a 61-year-old white female with chronic obstructive lung disease and emphysema. She stated that she has smoked since the age of 11. She presented in the emergency room at [facility] with complaints of increased shortness of breath and pain in the LEFT chest. She has been a patient of Dr. Yvette Law in [facility]. She last saw Dr. Law in the spring. She has also been a patient of Dr. Agustin Shane, platform worker. Significant in her pulmonary history was a pneumothorax of the RIGHT side in 1989 with recurrence [address] Ojeda in [facility] performed surgery on her lung to remove damaged tissue and to adhese the lung to the pleura. She stated that she had used home oxygen for the past 4 years. She also used inhalers and nebulizers, DuoNeb, Ventolin metered dose inhaler. She occasionally took Benadryl and stated that she was taking Coricidin for recent cold symptoms that led to her presentation to the emergency room. Exam on admission: 1ST Vital Signs Result Date Time Pulse Ox 88 03/02 2023 B/P 153/89 03/02 2023 Temp 99.1 03/02 2023 Pulse 111 03/02 2023 Resp 28 03/02 2023 O2 Delivery OXYGEN 03/02 2340 O2 Flow Rate 2 03/03 0009 Exam: General appearance: alert, no acute distress (somewhat tachypneic) Eyes: conjunctiva clear, PERRLA ENT: mucous membranes moist, teeth/gums abnormal (missing teeth.upper plate) Neck: no carotid bruit Cardiovascular: regular rate & rhythm (S4) Respiratory: diminished breath sounds, wheezing (LEFT more than RIGHT) ABD: soft, no tenderness, no guarding (scaphoid) Genitourinary: normal voiding & quantity Extremities: no peripheral edema (very thin) Skin: normal exam, intact, normal color Neuro: alert, no deficit, oriented, speech clear Hospital Course: On admission patient was started on IV ABX, duonebs, O2, and steroids. Her breathing did improve. She did eat well and became constipated for which she received laxatives. She spent much of her time out of her room and repeatedly went outside to smoke despite specific instructions from nursing staff. 03/06/17 patient was anxious and agitated with tremors. She was wanting to go home and threatening to sign out AMA. Dr. Reveles discussed with her in depth her lung condition. She did agree to stay. He started her on Serax which did seem to help although she continued to go outside that day to smoke in the rain. Her bowels did begin to move after multiple laxatives. She denied regular ETOH use. On 03/07/17 she ws discharged to home. Laboratory data this visit: 03/03/17 0410: Sodium 134 L, Potassium 4.2, Chloride 99, Carbon Dioxide 29, BUN 11, Creatinine 0.8, Estimated Creat Clear 45 L, Estimated GFR (MDRD) 73, Glucose 178 H, Calcium 8.8, Creatine Kinase 38, CK-MB (CK-2) Rel Index 1.3, CK and CKMB Interp < 0.5, Troponin I < 0.02, WBC 12.5 H, RBC 4.42, Hgb 14.2, Hct 43.3, MCV 98.1 H , RDW 12.7, Plt Count 253, MPV 9.1, Gran % 94.8 H, Gran # 11.9 H, Total Counted 100, Lymphocytes % 3.7 L, Monocytes % 1.3 L, Eosinophils % 0.1, Basophils % 0.1, Neutrophils 84 H, Band Neutrophils 12 H, Lymphocytes (Manual) 4 L, Lymphocytes # 0.5 L, Monocytes # 0.2, Eosinophils # 0.0, Basophils # 0.0, Platelet Estimate NORMAL, Polychromasia SL., Anisocytosis 1+, Rouleaux SL., PUBS MCHC 32.8, MCH 32.2 H 03/03/17 0105: Lactic Acid 0.9 03/03/17 010: Creatine Kinase 42, CK-MB (CK-2) Rel Index 1.2, CK and CKMB Interp < 0.5, Troponin I < 0.02 03/02/171: ABG pH 7.43, ABG pCO2 (Temp Corrct 38.2, ABG pO2 (Temp Correct 67.3 L, ABG HCO3 24.6, ABG Total CO2 25.8, ABG O2 Sat (Calculated) 94.5, ABG Base Excess 0.3, Raman Test Y, Blood Gas Comments R/R 03/02/172034: Lactic Acid 2.3 H 03/02/172034: Sodium 134 L, Potassium 4.5, Chloride 96 L, Carbon Dioxide 32, BUN 11, Creatinine 0.7, Estimated Creat Clear 48 L, Estimated GFR (MDRD) 85, Glucose 83 , Calcium 9.4, Total Bilirubin 0.4, AST 25, ALT 25, Alkaline Phosphatase 114, Creatine Kinase 52, CK-MB (CK-2) Rel Index 1.0, CK and CKMB Interp < 0.5, Troponin I < 0.02, Total Protein 8.6 H, Albumin 3.4, Globulin 5.2 H, Albumin/ Globulin Ratio 0.7 L, WBC 11.5 H, RBC 4.89, Hgb 15.6, Hct 48.1 H, MCV 98.4 H , RDW 12.7, Plt Count 273, MPV 8.9, Gran % 78.7, Gran # 9.0 H, Lymphocytes % 16.6, Monocytes % 2.7, Eosinophils % 1.7, Basophils % 0.4, Lymphocytes # 1.9, Monocytes # 0.3, Eosinophils # 0.2, Basophils # 0.0, PUBS MCHC 32.5, MCH 32.0 H Microbiology 03/02 2035 BLOOD: Anaerobic Blood Culture - RECD 03/02 2035 BLOOD: Aerobic Blood Culture - RECD 03/02 2035 BLOOD: Anaerobic Blood Culture - RECD 03/02 2035 BLOOD: Aerobic Blood Culture - RECD Imagin03/02/17 CXR IMPRESSION: 1. COPD with chronic changes. 2. Left lower lobe infiltrate. 3. Vague opacity left upper lobe which may be due to fibrotic change, pneumonia, or even developing mass. 4. Nodular opacity right lung base which may be due to developing nodule or artifact. Consider chest CT for further evaluation. 03/04/17 CT of chest IMPRESSION: 1. COPD with emphysematous changes. Postsurgical changes right upper lobe. 2. Left lower lobe pneumonia. 3. Slight increased consolidation in the left lung base laterally.. Discharge medications: Continue taking these medications: No Home Medications (NO HOME MEDICATIONS) DOC 1 EACH Does Not Apply ONE TIME ALBUTEROL-IPRATROPIUM (Iprat-Albut 0.5-3(2.5) MG/3 Ml) 3 ML AMPUL.NEB 3 MILLILITER INHALATION TWICE A DAY ROPINIROLE HCL (Requip 1 Mg) 1 MG TABLET 1 MILLIGRAM ORAL AT BEDTIME NIGHTLY Start taking the following new medications: Polyethylene Glycol 3350 (Miralax) 119 GM POWDER 17 GRAM ORAL DAILY Qty = 1 Refills = 2 Oxazepam (Oxazepam) 10 MG CAPSULE 10 MILLIGRAM ORAL TID PRN Qty = 20 No Refills Cefdinir (Cefdinir) 300 MG CAPSULE 300 MILLIGRAM ORAL TWICE A DAY Qty = 14 No Refills Prednisone (Prednisone) 5 MG TABLET 5 MILLIGRAM ORAL TWICE A DAY Qty = 30 No Refills Disposition: Discharged to home in stable and satisfactory condition. Follow up: [address] Yvette Law Comments, Specifics r/t O2, Equipment, Antibiotics, etc: D/C on antibiotic, prednisone and Oxazepam Activity: Cont Current activity Diet: Continue same diet Discharge to: HOME Agency needed? N Meds as per reconciliation sheet at [id number]
== END 2017-03-07 11:20 | disposition home or self-care (01) | DRG 190 ==
LOC: ER 20:22 → 2ND 22:11
PROVIDERS: Emergency Medicine; Family Medicine
DX: J44.1 Chronic obstructive pulmonary disease with (acute) exacerbation (principal); J18.9 Pneumonia, unspecified organism; Z99.81 Dependence on supplemental oxygen; I10 Essential (primary) hypertension; Z72.0 Tobacco use; Z95.828 Presence of other vascular implants and grafts; I25.2 Old myocardial infarction; Z85.3 Personal history of malignant neoplasm of breast
CPT/HCPCS: J0456; Q9967